=== PATIENT | male | born 1995 | race Two or more races ===

== ENCOUNTER 2018-11-19 11:58 | Emergency (ER) | payer OTHER ==
[2018-11-19] MEDS ORDERED: NS 0.9% 1000 ML** 1,000 ML IV ONE (12:19)
--- NOTE | 2018-11-19 12:28 | ED ---
Adult Trauma - HPI Summary HPI Summary: This pt is a 23 y/o male presenting to [facility] via EMS from [facility] for a fall today. Pt reports he fell in the [place] [employer] this morning and had a head strike. He denies LOC. Pt notes he has a headache and right elbow pain. Pt is unable to bend his right elbow secondary to pain. Denies nausea or vomiting. Facility provider reports pt was not acting right after his fall and had dilated pupils. Facility provider is requesting a drug screen. - History of Current Complaint Chief Complaint: EDFall Stated Complaint: FALL-INJURY TO ELBOW/KNEE PER EMS Hx Obtained From: Patient, Other: - Provider at nursing home Mechanism of Injury: Fall Loss of Consciousness: no loss of consciousness Onset/Duration: Started Hours Ago, Traumatic, Still Present Onset of Pain: Immediate Current Severity: Moderate Pain Intensity: 8 Pain Scale Used: 0-10 Numeric Location: Extremities - Right elbow Aggravating Factor(s): Nothing Alleviating Factor(s): Nothing Associated Signs & Symptoms: Negative: Fever, Nausea/Vomiting, Loss of Consciousness - Allergy/Home Medications Allergies/Adverse Reactions: Allergies Allergy/AdvReac Type Severity Reaction Status Date / Time No Known Allergies Allergy Verified 11/19/18 12:15 Home Medications: Home Medications NK [No Home Medications Reported] 11/19/18 [History Confirmed 11/19/18] PMH/Surg Hx/FS Hx/Imm Hx Endocrine/Hematology History: Denies: Hx Diabetes Cardiovascular History: Denies: Hx Hypertension Psychiatric History: Reports: Hx Attention Deficit Hyperactivity Disorder Infectious Disease History: No Infectious Disease History: Denies: Traveled Outside the [place] in Last 30 Days - Family History Known Family History: Positive: Non-Contributory - Social History Alcohol Use: None Substance Use Type: Reports: None Smoking Status (MU): Light Every Day Tobacco Smoker Review of Systems Negative: Fever, Chills Negative: Vomiting, Nausea Musculoskeletal: Other - POSITIVE: right elbow pain Neurological: Other - NEGATIVE: LOC Positive: Headache All Other Systems Reviewed And Are Negative: Yes Physical Exam - Summary Physical Exam Summary: VITAL SIGNS: Reviewed. GENERAL: Patient is a well-developed and nourished male who is lying comfortable in the stretcher. Patient is not in any acute respiratory distress. HEAD AND FACE: No signs of trauma. No ecchymosis, hematomas or skull depressions. No sinus tenderness. EYES: PERRLA, EOMI x 2, No injected conjunctiva, no nystagmus. EARS: Hearing grossly intact. Ear canals and tympanic membranes are within normal limits. MOUTH: Oropharynx within normal limits. NECK: Supple, trachea is midline, no adenopathy, no JVD, no carotid bruit, no c- spine tenderness, neck with full ROM. CHEST: Symmetric, no tenderness at palpation LUNGS: Clear to auscultation bilaterally. No wheezing or crackles. CVS: Regular rate and rhythm, S1 and S2 present, no murmurs or gallops appreciated. ABDOMEN: Soft, non-tender. No signs of distention. No rebound no guarding, and no masses palpated. Bowel sounds are normal. EXTREMITIES: FROM in all major joints, no edema, no cyanosis or clubbing. NEURO: Alert and oriented x 3. No acute neurological deficits. Speech is normal and follows commands. SKIN: Dry and warm GCS: 15 Triage Information Reviewed: Yes Vital Signs On Initial Exam: Initial Vitals Temp Pulse Resp BP Pulse Ox 98.8 F 58 14 133/61 98 11/19/18 12:07 11/19/18 12:07 11/19/18 12:07 11/19/18 12:07 11/19/18 12:07 Vital Signs Reviewed: Yes Procedures - Sedation Patient Received Moderate/Deep Sedation with Procedure: No Diagnostics - Vital Signs Vital Signs Temp Pulse Resp BP Pulse Ox 11/19/18 12:07 98.8 F 58 14 133/61 98 - Laboratory Result Diagrams: 11/19/18 12:35 11/19/18 12:36 Lab Statement: Any lab studies that have been ordered have been reviewed, and results considered in the medical decision making process. - Radiology Chest XR Radiology Interpretation Completed By: Radiologist Summary of Radiographic Findings: IMPRESSION: No evidence for active cardiopulmonary disease. Dr. Jang has reviewed this report. Right elbow XR Radiology Interpretation Completed By: Radiologist Summary of Radiographic Findings: IMPRESSION: No evidence for fracture. Dr. Jang has reviewed this report. - CT Brain CT CT Interpretation Completed By: Radiologist Summary of CT Findings: IMPRESSION: No evidence for acute intracranial abnormality. Dr. Jang has reviewed this report. - EKG 12:23 Cardiac Rate: Bradycardia - at 57 bpm EKG Rhythm: Sinus Bradycardia Summary of EKG Findings: EKG at 1223 shows sinus bradycardia at [address] elevations. Normal axis. Adult Trauma Course/Dx - Course Assessment/Plan: Bloodwork without any significant abnormality except for CPK of 340. Urinalysis is negative for UTI. Urine toxicology is negative. Head CT impression: No acute intracranial pathology. Chest x-ray impression: No acute pathology. Elbow x-ray impression: No fracture or dislocation. In the ED course the patient has remained stable. He has no other complaints. Patient will be discharged back to his facility. At this point I discussed all the findings and test results with the patient. He was instructed to return to the emergency room immediately if any of the symptoms return or worsen. Patient understands and agrees. Neurological exam before discharge: Patient is alert and oriented x 3. No acute neurological deficits. Patient's vital signs are stable. Patient is to follow up with his PCP in the next 2 3 days. He understands and agrees. Plan of care was discussed with the patient and patient understands and agrees with the plan of care. All questions were answered at patient satisfaction. There were no further complaints or concerns. - Diagnoses Provider Diagnoses: Fall Discharge ED - Sign-Out/Discharge Documenting (check all that apply): Patient Departure - Discharge home - Discharge Plan Condition: Stable Disposition: HOME Patient Education Materials: Fall Prevention (ED) Referrals: Eduar CABALLERO,Candace Lomeli [Primary Care Provider] - Additional Instructions: FOLLOW UP WITH YOUR PRIMARY CARE PROVIDER IN 2-3 DAYS. RETURN TO THE EMERGENCY DEPARTMENT FOR ANY WORSENING OR NEW SYMPTOMS. - Billing Disposition and Condition Condition: STABLE Disposition: Home - Attestation Statements Document Initiated by Braxton: Yes Documenting Scribe: Promise Aviles Provider For Whom Braxton is Documenting (Include Credential): Stef Jang MD Scribe Attestation: Promise Villeda, scribed for Stef Jang MD on 11/19/18 at 1613. Scribe Documentation Reviewed: Yes Provider Attestation: The documentation as recorded by the Promise ward accurately reflects the service I personally performed and the decisions made by me, Stef Jang MD Status of Scribe Document: Viewed
[2018-11-19 12:51] LABS: ABS Eosinophils 0.1 10^3/ul (0-0.6); ABS Lymphocytes 1.1 10^3/ul (1.0-4.8); ABS Monocytes 0.5 10^3/ul (0-0.8); ABS Neutrophils 3.6 10^3/ul (1.5-7.7); Eosinophil % 2.4 %; Hematocrit 46 % (42-52); Hemoglobin 15.6 g/dL (14.0-18.0); Lymphocyte % 20.7 %; Mean Corpuscular HGB Conc 34 g/dL (31-36); Mean Corpuscular Hemoglobin 31 pg (27-31); Mean Corpuscular Volume 90 fL (80-94); Mean Platelet Volume 8.1 fL (7.4-10.4); Nucleated Red Blood Cells % 0.1; Platelet Count 247 10^3/uL (150-450); Red Blood Count 5.09 10^6 /uL (4.18-5.48); Red Cell Distribution Width 13 % (10-15); White Blood Count 5.5 10^3/uL (3.5-10.8)
[2018-11-19 13:14] LABS: ALT 51 U/L (7-52); AST 25 U/L (13-39); Acetaminophen < 15 mcg/mL; Albumin 4.8 g/dL (3.2-5.2); Albumin/Globulin Ratio 2.2 (1-3); Alcohol < 10 mg/dL (<10); Alkaline Phosphatase 82 U/L (34-104); Anion Gap 3 mmol/L (2-11); BUN/Creatinine Ratio 8.7 (8-20); Blood Urea Nitrogen 9 mg/dL (6-24); CO2 Carbon Dioxide 31 mmol/L (22-32); Calcium 9.3 mg/dL (8.6-10.3); Chloride 106 mmol/L (101-111); Creatine Kinase 340 U/L (10-223); EGFR African American 106.2 (>60); EGFR Non-African American 87.7 (>60); Globulin 2.2 g/dL (2-4); Glucose 96 mg/dL (70-100); Magnesium 2.1 mg/dL (1.9-2.7); Potassium 4.4 mmol/L (3.5-5.0); Salicylate < 2.50 mg/dL (<30); Sodium 140 mmol/L (135-145)
[2018-11-19 13:28] LABS: TSH (Thyroid Stimulating Horm) 0.82 mcIU/mL (0.34-5.60)
[2018-11-19 13:56] LABS: Urine Appearance Clear; Urine Bilirubin Negative (Negative); Urine Blood Negative (Negative); Urine Color Straw; Urine Glucose Negative (Negative); Urine Ketones Negative (Negative); Urine Nitrite Negative (Negative); Urine Protein Negative (Negative); Urine Specific Gravity 1.006 (1.010-1.030); Urine Urobilinogen Negative (Negative)
[2018-11-19 14:25] LABS: Urine Benzodiazepine Screen None Detected (None Detect); Urine Opiates Screen None Detected (None Detect)
[2018-11-19] MEDS ORDERED: Ibuprofen TAB* 600 MG PO ONE (15:59)
[2018-11-19 16:16] VITALS: BP 137/67
== END 2018-11-19 16:05 | disposition home or self-care (01) ==
LOC: ED 11:58
DX: M25.521 Pain in right elbow (principal); Z91.81 History of falling; F17.210 Nicotine dependence, cigarettes, uncomplicated; R51 Headache; F90.9 Attention-deficit hyperactivity disorder, unspecified type
CPT/HCPCS: 36415; 70450; 71046; 80053; 80307; 80320; 80329; 81003; 82140; 82550; 83605; 83735; 84443; 84484; 85025; 93005; 96360; 96361; 99284; A9270-GY; G0480

== ENCOUNTER 2018-12-09 12:37 | Emergency (ER) | payer OTHER ==
--- NOTE | 2018-12-09 12:49 | ED ---
Lower Extremity - HPI Summary HPI Summary: Patient is a 23-year-old male who presents emergency department for right knee injury that occurred 5 days ago. Patient is a resident at [address] [place] [address]. Patient states he was signed basketball on Saturday when he twisted to the right injuring right knee. Patient states he felt his knee pop and shift to the right side. Patient states he has had a few injuries to right knee in the past. Denies any numbness, tingling or weakness. Is able to ambulate with pain. Symptoms are mild in severity. Moving makes symptoms worse. Rest makes symptoms better. - History of Current Complaint Chief Complaint: EDExtremityLower Stated Complaint: DISLOCATED RT KNEE Time Seen by Provider: 12/09/18 12:43 Hx Obtained From: Patient Pain Intensity: 10 - Allergies/Home Medications Allergies/Adverse Reactions: Allergies Allergy/AdvReac Type Severity Reaction Status Date / Time No Known Allergies Allergy Verified 11/19/18 12:15 PMH/Surg Hx/FS Hx/Imm Hx Previously Healthy: Yes Endocrine/Hematology History: Denies: Hx Diabetes Cardiovascular History: Denies: Hx Hypertension Psychiatric History: Reports: Hx Attention Deficit Hyperactivity Disorder - Surgical History Surgery Procedure, Year, and Place: rt foot Infectious Disease History: No Infectious Disease History: Denies: Traveled Outside the [place] in Last 30 Days - Family History Known Family History: Positive: Non-Contributory - Social History Lives: Shel[facility] - [place] Alcohol Use: None Substance Use Type: Reports: None Smoking Status (MU): Light Every Day Tobacco Smoker Review of Systems Positive: Other - right knee pain and swelling Skin: Negative Neurological: Negative Negative: Weakness, Paresthesia, Numbness All Other Systems Reviewed And Are Negative: Yes Physical Exam Triage Information Reviewed: Yes Vital Signs On Initial Exam: Initial Vitals Temp Pulse Resp BP Pulse Ox 98.8 F 61 18 138/75 99 12/09/18 12:39 12/09/18 12:39 12/09/18 12:39 12/09/18 12:39 12/09/18 12:39 Vital Signs Reviewed: Yes Appearance: Positive: Well-Appearing - Pt. lying in bed in NAD. Correction officers present at bedside. Skin: Positive: Warm, Dry Head/Face: Positive: Normal Head/Face Inspection Eyes: Positive: Normal, EOMI Neck: Positive: Supple Musculoskeletal: Positive: Other - Good pedal pulse on right. Small medial effusion. Decrease flexion secondary to pain. Can lift left off of bed. No overlying erythema or increased warmth. Neurological: Positive: Normal, CN Intact II-III Psychiatric: Positive: Affect/Mood Appropriate Procedures - Sedation Patient Received Moderate/Deep Sedation with Procedure: No Diagnostics - Vital Signs Vital Signs Temp Pulse Resp BP Pulse Ox 12/09/18 12:39 98.8 F 61 18 138/75 99 - Laboratory Lab Statement: Any lab studies that have been ordered have been reviewed, and results considered in the medical decision making process. Lower Extremity Course/Dx - Course Course Of Treatment: Patient with right knee injury that occurred 5 days ago. X -ray negative for acute findings, reading per radiology. Suspect sprain. Ethan wrap placed. Advised ice and elevation intermittently. Ibuprofen as directed for pain. Recommend follow-up with orthopedics for pain persists for further evaluation. Patient understands and agrees with plan. - Diagnoses Differential Diagnosis/HQI/PQRI: Positive: Contusion, Fracture (Closed), Sprain , Strain Provider Diagnoses: Knee sprain Discharge ED - Sign-Out/Discharge Documenting (check all that apply): Patient Departure - Discharge Plan Condition: Good Disposition: HOME Patient Education Materials: Knee Sprain (ED) Referrals: Benjamin Roque MD [Medical Doctor] - Eduar CABALLERO,Candace Lomeli [Primary Care Provider] - Additional Instructions: Schedule a follow up appointment with PCP or orthopedics if pain persist within 2 weeks for further imaging Ice and elevate intermittently Recommend ibuprofen 400mg-600mg every 6 hours as directed for pain Recommend crutches for ambulation Ethan wrap for pain and swelling Activity as tolerated Return to ER if symptoms change or worsen - Billing Disposition and Condition Condition: GOOD Disposition: Home
[2018-12-09 14:43] VITALS: BP 132/78
== END 2018-12-09 14:43 | disposition home or self-care (01) ==
LOC: ED 12:37
DX: S83.91XA Sprain of unspecified site of right knee, initial encounter (principal); F90.9 Attention-deficit hyperactivity disorder, unspecified type; F17.210 Nicotine dependence, cigarettes, uncomplicated; X58.XXXA Exposure to other specified factors, initial encounter; Y93.67 Activity, basketball; Y92.310 Basketball court as the place of occurrence of the external cause
CPT/HCPCS: 99282